=== PATIENT | male | born 1950 | race Caucasian/White ===

== ENCOUNTER → 2020-11-13 | Outpatient (CLI) | payer OTHER | LOC: SJCVC 14:45 | PROVIDERS: ATTEND Internal Medicine Cardiovascular Disease | DX: I25.10 Atherosclerotic heart disease of native coronary artery without angina pectoris (principal); I71.4 Abdominal aortic aneurysm, without rupture; E78.00 Pure hypercholesterolemia, unspecified; I10 Essential (primary) hypertension; I48.0 Paroxysmal atrial fibrillation; E61.1 Iron deficiency; I72.3 Aneurysm of iliac artery; K21.9 Gastro-esophageal reflux disease without esophagitis; I73.9 Peripheral vascular disease, unspecified; I25.2 Old myocardial infarction; F17.200 Nicotine dependence, unspecified, uncomplicated; Z72.89 Other problems related to lifestyle; Z79.899 Other long term (current) drug therapy ==

== ENCOUNTER → 2020-11-29 | Outpatient (CLI) | payer OTHER | LOC: SJCVCIMAG 09:21 | PROVIDERS: ATTEND Internal Medicine Cardiovascular Disease | DX: I72.2 Aneurysm of renal artery (principal); I73.9 Peripheral vascular disease, unspecified; M79.661 Pain in right lower leg; M79.662 Pain in left lower leg ==

== ENCOUNTER → 2021-03-31 | Outpatient (CLI) | payer OTHER | LOC: MRI 11:45 | PROVIDERS: ATTEND Psychiatry & Neurology Neuromuscular Medicine | DX: M26.02 Maxillary hypoplasia (principal); G45.9 Transient cerebral ischemic attack, unspecified ==